=== PATIENT | female | born 1950 | race Hispanic/Latino ===

== ENCOUNTER 2017-04-17 18:30 | Emergency (ER) | payer MEDICAID ==
[2017-04-17 18:46] VITALS: RESP 16; TEMP 97; O2SAT 98
--- NOTE | 2017-04-17 19:06 | ED PDOC ---
HPI: Head Injury Time Seen by Provider: 04/17/17 18:56 Chief Complaint (Nursing): Abnormal Skin Integrity Chief Complaint (Provider): Head injury History Per: Patient History/Exam Limitations: no limitations Onset/Duration Of Symptoms: Days Additional Complaint(s): Pt. was walking and accidentally fell when tripping over a tree stump. Hit her right forehead on the ground. No LOC. Got back up and got into an ambulance after fall. No pain elsewhere. No numbness, tingles, weakness, dizziness. No neck pain. No arm or leg pain. No incontinence. Lives alone. Past Medical History Reviewed: Nursing Documentation, Vital Signs Vital Signs: Last Vital Signs Temp 97.0 F L 04/17/17 18:39 Pulse 96 H 04/17/17 18:39 Resp 16 04/17/17 18:39 BP 199/134 H 04/17/17 18:39 Pulse Ox 98 04/17/17 18:39 - Medical History PMH: No Chronic Diseases - Surgical History Surgical History: No Surg Hx - Family History Family History: States: Unknown Family Hx - Living Arrangements Living Arrangements: Alone - Social History Current smoker - smoking cessation education provided: No Alcohol: None Drugs: Denies - Home Medications Home Medications: Ambulatory Orders Medication Instructions Recorded No Known Home Med 04/17/17 - Allergies Allergies/Adverse Reactions: Allergies Allergy/AdvReac Type Severity Reaction Status Date / Time No Known Allergies Allergy Verified 04/17/17 18:46 Review of Systems ROS Statement: Except As Marked, All Systems Reviewed And Found Negative Neurological: Positive for: Headache Physical Exam - Reviewed Nursing Documentation Reviewed: Yes Vital Signs Reviewed: Yes - Physical Exam Appears: Positive for: Non-toxic, No Acute Distress Head Exam: Positive for: NORMOCEPHALIC. Negative for: ATRAUMATIC (R eyebrow lateral with laceration 2.5cm), NORMAL INSPECTION Skin: Positive for: Normal Color, Warm, DRY Eye Exam: Positive for: EOMI, Normal appearance, PERRL ENT: Positive for: Normal ENT Inspection, Other (no septal hematoma) Neck: Positive for: Normal, Painless ROM, Supple Cardiovascular/Chest: Positive for: Regular Rate, Rhythm Respiratory: Positive for: CNT, Normal Breath Sounds Gastrointestinal/Abdominal: Positive for: Normal Exam, Bowel Sounds, Soft, Distended (chronic per pt.). Negative for: Tenderness Back: Positive for: Normal Inspection. Negative for: L CVA Tenderness, R CVA Tenderness Extremity: Positive for: Normal ROM. Negative for: Tenderness, Calf Tenderness Neurologic/Psych: Positive for: Alert, parts representative II-XII, Oriented. Negative for: Motor/Sensory Deficits, Facial Droop - Laboratory Results Result Diagrams: 04/17/17 21:10 04/17/17 21:10 Interpretation Of Abn Labs: no acute - ECG ECG: Positive for: Interpreted By Me, Viewed By Me ECG Rhythm: Positive for: Normal QRS, Normal ST Segment, Sinus Rhythm O2 Sat by Pulse Oximetry: 98 Pulse Ox Interpretation: Normal - CT Scan/US head Other Rad Studies (CT/US): Read By Radiologist Other Rad Interpretation: no acute - Progress ED Course And Treament: 2104: BP elevated, will get basic eval and give clonidine. 1052: Stable. AAOx3. Tolerated PO. Fu with pcp. Ambulated with no issues. BP elevated. Pt. advised to fu with pcp or clinic. Disposition - Clinical Impression Clinical Impression: Laceration, Head injury, HTN (hypertension) - Disposition Referrals: [facility] [Outside] - 04/18/17 Disposition: Routine/Home Disposition Time: 20:42 Condition: STABLE Additional Instructions: Return in 5 days or see your doctor in 5 days for suture removal. See the clinic without fail for re-evaluation and further treatment of your blood pressure that is high. Instructions: Laceration (ED), Head Injury (ED), Hypertension (ED) Forms: [employer] (Japanese)
--- NOTE | 2017-04-17 20:11 | CT ---
EXAM: CT Head Without Intravenous Contrast CLINICAL HISTORY: 66 years old, female; Injury or trauma; Fall; Initial encounter; Laceration; Consciousness not specified; Without residual foreign body; Head, generalized; Injury date: Today; Injury details: Falling; Patient HX: Rt side bleeding/ swelling; Additional info: Headache TECHNIQUE: Axial computed tomography images of the head/brain without intravenous contrast. All CT scans at this facility use one or more dose reduction techniques, viz.: automated exposure control; ma/kV adjustment per patient size (including targeted exams where dose is matched to indication; i.e. head); or iterative reconstruction technique. Coronal and sagittal reformatted images were created and reviewed. COMPARISON: No relevant prior studies available. FINDINGS: Brain: Mild atrophy. No intracranial hemorrhage. Several scattered foci of decreased attenuation within periventricular/subcortical white matter. No edema. Ventricles: Mildly dilated out of proportion to sulci. Bones/joints: No acute fracture. Soft tissues: Unremarkable. Sinuses: No acute sinusitis. Mastoid air cells: No mastoid effusion. Orbits: Unremarkable as visualized. IMPRESSION: 1. No intracranial hemorrhage. 2. Mild hydrocephalus vs central atrophy. Compare with prior examinations if available. 3. Nonspecific white matter changes. 4. Incidental/non-acute findings are described above.
[2017-04-17] MEDS ORDERED: Lidocaine 1% Inj (20ml) ONE (20:12)
--- NOTE | 2017-04-17 21:05 | ED PDOC ---
Procedures - Time-Out Type of Procedure: Laceration repair Site of Procedure: R/eyebrow Correct Patient: Yes Correct Procedure: Yes Correct Site Marked: Yes Physician Name: Dr Tate - Laceration/Wound Repair Right Face Wound Length (cm): 3 Wound's Depth, Shape: linear Wound Explored: clean Irrigated w/ Saline (ccs): 5 Anesthesia: Lidocaine w/ Epi Volume Anesthetic (ccs): 2 Wound Repaired With: Sutures Suture Size/Type: 4:0 Number of Sutures: 5 Layer Closure?: No Wound Complexity: Simple Sterile Dressing Applied?: Yes (wide band aid)
[2017-04-17 21:20] LABS: BASO # 0.1 K/uL (0.0-0.2); BASO % 0.8 % (0.0-2.0); EOS # 0.4 K/uL (0.0-0.7); EOS % 3.1 % (0.0-4.0); HEMATOCRIT 35.8 % (34.0-47.0); LYMPH # 1.6 K/uL (1.0-4.3); LYMPH % 13.5 % (20.0-40.0); MEAN CELL VOLUME 84.8 fl (81.0-99.0); MEAN CORPUSCULAR HEMOGLOBIN 28.4 pg (27.0-31.0); MEAN CORPUSCULAR HGB CONC 33.5 g/dL (33.0-37.0); MEAN PLATELET VOLUME 7.3 fl (7.2-11.7); MONO # 0.8 K/uL (0.0-0.8); MONO % 6.7 % (0.0-10.0); NEUT % 75.9 % (50.0-75.0); RED CELL DISTRIBUTION WIDTH 15.2 % (11.5-14.5); WHITE BLOOD COUNT 11.9 K/uL (4.8-10.8)
[2017-04-17 21:27] LABS: ALKALINE PHOSPHATASE 110 U/L (38-126); ALT/SGPT 27 U/L (9-52); AST/SGOT 15 U/L (14-36); BILIRUBIN,TOTAL 0.3 mg/dl (0.2-1.3); BLOOD UREA NITROGEN 14 mg/dl (7-17); CALCIUM 9.3 mg/dL (8.4-10.2); CARBON DIOXIDE 22 mmol/L (22-30); CHLORIDE 105 mmol/L (98-107); GFR AFRICAN-AMERICAN > 60; GLUCOSE,RANDOM 98 mg/dL (65-105); POTASSIUM 3.7 MMOL/L (3.6-5.0); SODIUM 142 mmol/l (132-148); TOTAL PROTEIN 8.1 G/DL (6.3-8.2)
[2017-04-17] MEDS ORDERED: Labetalol 5 mg/ml Inj 20ML IVP STA (22:11)
[2017-04-17] MEDS ORDERED: Labetalol 5mg/ml (4ml) ONE (22:13)
[2017-04-17 22:57] VITALS: BP 160/102; PULSE 81
--- NOTE | 2017-04-19 00:34 | CARD ---
APPROVED REPORT EKG Measurement Heart [id number] NV [id number] [id number] <Conclusion> Normal sinus rhythm Possible Left atrial enlargement Possible Anterior infarct, age undetermined Abnormal ECG
== END 2017-04-17 23:16 | disposition home or self-care (01) ==
LOC: H.ER 18:30
DX: S09.90XA Unspecified injury of head, initial encounter (principal); S01.111A Laceration without foreign body of right eyelid and periocular area, initial encounter; I10 Essential (primary) hypertension; W01.198A Fall on same level from slipping, tripping and stumbling with subsequent striking against other object, initial encounter